=== PATIENT | female | born 1980 | race Caucasian/White ===

== ENCOUNTER 2016-11-01 12:04 | Emergency (ER) | payer SELFPAY ==
[~2016-11-01] VITALS: Ht 152.4 cm; Wt 69.5 kg
[2016-11-01 12:18] VITALS: Ht 152.4 cm; Wt 69.5 kg
[2016-11-01] MEDS ORDERED: CEPH-443 PO (13:55)
[2016-11-01] MEDS ORDERED: BACTDS PO (13:55)
[2016-11-01] MEDS ORDERED: CEPHALEXIN 500 MG CAP PO ONE (14:00)
--- NOTE | 2016-11-01 19:32 | ERD ---
ER Documentation Chief Complaint Date/Time DATE: 11/01/16 TIME: 19:29 Chief Complaint Spider bite L shoulder 2 days ago, now has fever and body aches HPI 36-year-old presents with pain swelling, redness to the left posterior shoulder after "spider bite" 2 days ago. Patient has had tactile fever and body aches. Patient denies dysuria or increased urinary frequency, no back pain, no chest pain or shortness of breath, no cough, no sore throat, no headache or blurry vision. Patient denies neck pain or stiffness. ROS All systems reviewed and are negative except as per history of present illness. Medications Home Meds Active Scripts Cephalexin* (Keflex*) 500 Mg Capsule, 500 MG PO TID for 7 Days, CAP Prov:NOA PETERSON MD 11/01/16 Sulfamethoxazole-Trimethoprim* (Bactrim* DS) 800-160 Mg Tab, 1 TAB PO BID for 7 Days, TAB Prov:NOA PETERSON MD 11/01/16 Allergies Allergies: Coded Allergies: No Known Allergy (Unverified , 11/01/16) PMhx/Soc None History of Surgery: No Anesthesia Reaction: No Hx Neurological Disorder: No Hx Respiratory Disorders: No Hx Cardiac Disorders: No Hx Psychiatric Problems: No Hx Miscellaneous Medical Probl: No Hx Alcohol Use: Yes Hx Substance Use: No Hx Tobacco Use: Yes Smoking Status: Current every day smoker FmHx Family History: No diabetes Physical Exam Vitals Vital Signs Date Time Temp Pulse Resp B/P Pulse Ox O2 Delivery O2 Flow Rate FiO2 11/01/16 12:18 97.0 69 16 110/55 100 Physical Exam GENERAL: Well-developed, well-nourished, well-hydrated, in no apparent distress , looks nontoxic in appearance HEENT: Moist mucous membranes, pink conjunctiva, no cervical spine tenderness or step-off deformities, no goiter, no jaundice or icterus, extraocular movements intact without pain. No submandibular induration, and no pharyngeal erythema NEURO: Alert and oriented 3, cranial nerves II through XII intact bilaterally, pupils equal round reactive to light, no focal deficits or facial asymmetry, sensation intact distally Strength 5/5 in upper and lower extremities bilaterally CARDIAC: Regular rate and rhythm, no murmurs rubs or gallops LUNGS: Clear bilaterally no wheezing crackles or stridor ABDOMEN: Soft nontender, no guarding, no rigidity, no rebound, no psoas sign no obturator sign. Normoactive bowel sounds SKIN: Superficial abrasion to the left upper posterior shoulder over the trapezius with surrounding skin induration and erythema, no purulent discharge noted. There are no target lesions, ulcers, pustules noted. EXTREMITIES: No clubbing cyanosis or edema, calves are bilaterally symmetrical, no Homans sign, no popliteal cord sign. Distal pulses equal and bilateral PSYCH: Normal affect without agitation or irritability Results 24 hrs Current Medications Medications (Trade) Dose Ordered Sig/Shreyas Route PRN Reason Start Time Stop Time Status Last Admin Dose Admin Cephalexin (Keflex) 500 mg ONCE ONCE PO 11/01/16 14:00 11/01/16 14:01 DC 11/01/16 14:00 Procedures/MDM I administered cephalexin 500 mg p.o. 1 here in the ED. Patient feels much better at this time, and vital signs are normal, symptoms have improved. I did give strict instructions to return to the ED if symptoms continue or worsen, patient will otherwise follow-up with primary care physician. Patient understood instructions and agreed to plan. Departure Diagnosis: Primary Impression: Cellulitis Site of cellulitis: trunk Site of cellulitis of trunk: back Qualified Code : L03.312 - Cellulitis of back except buttock Condition: Good Patient Instructions: Cellulitis NOA PETERSON MD Nov 01, 2016 19:32
== END 2016-11-01 14:17 | disposition home or self-care (01) ==
LOC: FTE 12:04
DX: L03.312 Cellulitis of back [any part except buttock and flank] (principal); F17.210 Nicotine dependence, cigarettes, uncomplicated
CPT/HCPCS: 99284